=== PATIENT | male | born 1955 | race Caucasian/White ===

== ENCOUNTER 2024-06-17 13:30 | Outpatient (CLI) | payer OTHER, SELFPAY | END 2024-06-17 13:31 | disposition home or self-care (01) | PROVIDERS: Visit Provider Family Medicine | DX: I10 Essential (primary) hypertension (principal); Z13.29 Encounter for screening for other suspected endocrine disorder | CPT/HCPCS: 80048; 84443 ==

== ENCOUNTER 2024-07-30 09:10 | Emergency (ER) | payer BC, SELFPAY ==
[2024-07-30 09:24] VITALS: BP 169/88; PULSE 66; RESP 18; TEMP 36.6; O2SAT 98; BMI 25.1
--- NOTE | 2024-07-30 09:53 | ED.GENADULT ---
HPI - General Adult General Date Seen: 07/30/24 Chief complaint: Extremity Pain/Injury, Lower Stated complaint: L leg infection Time Seen by Provider: 07/30/24 09:51 History of Present Illness HPI narrative: 69-year-old male with a past medical history of hypertension, tobacco use, history of bilateral hip replacements, presenting to the ER today for left leg cellulitis which is recurring. Per medical record he is tablets primary care with the [facility] in May, Dr. Smith. Started on lisinopril. He was seen in urgent care on 07/18 with a 4 day history of left lower extremity redness and swelling. He had been scratch by a Juniper tree in his yd about a week prior to onset of his symptoms. Labs and urgent care showed a white count of 7.7, hemoglobin 12.3. Glucose 97. D-dimer normal at 438. Creatinine 1.6. Treated for cellulitis with cephalexin 500 q.i.d. for 7 days. Patient reports that he finished that course of antibiotics and felt like the infection is completely healed. 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 Was seen again yesterday on 07/29 in urgent care for recurrent cellulitis. Had started having symptoms again about 5 days prior to the visit (around the end of June) . White blood cell count was 9.3. He was febrile. He was told to come to the ER last night. However since he was tired and needed to go home and shower, he refused to come last night. He said he would come in this morning because he was tired. Overnight he has had ongoing swelling and redness of the left distal half of the whitfield, lateral to the tibia. It is not really spreading. He has had some fevers and chills. No weakness. No spreading redness. Nose ascending lymphangitis. He has no history of diabetes or known immunosuppression. No history of chemotherapy or cancer. No autoimmune diseases. He has no history of peripheral artery disease. The patient recalls that he for suffered an injury to that whitfield while doing yd work a few weeks ago. They apparently got poked in the leg by a stick from his Juniper [place]. He is pretty confident there is no buried foreign body or sliver there. He also has a few other scratches on his whitfield which are apparently related to mowing lawn and pre-existing his infection. He recalls having some purulent drainage from the Tisha upper portion puncture site week or 2 ago when the infections 1st began. The drainage stopped after the puncture sites scabbed over Related Data Home Medications ?Medication ?Instructions ?Recorded ?Confirmed multivitamin 1 tab PO QAM 06/17/24 07/29/24 Previous Rx's ?Medication ?Instructions ?Recorded lisinopril 20 mg tablet See Rx Instructions PO QDAY #30 06/17/24 tabs cephalexin 500 mg capsule 500 mg PO QID #40 caps 07/30/24 doxycycline hyclate 100 mg capsule 100 mg PO BID #20 caps 07/30/24 Allergies Allergy/AdvReac Type Severity Reaction Status Date / Time No Known Drug Allergies Allergy Verified 07/29/24 17:08 [facility] Surgical History S/P right inguinal hernia repair ?Z98.890 - Other specified postprocedural states (ICD-10) ?Z87.19 - Personal history of other diseases of the digestive system (ICD-10) H/O thumb surgery ?Z98.890 - Other specified postprocedural states (ICD-10) S/P bilateral hip replacements ?Z96.643 - Presence of artificial hip joint, bilateral (ICD-10) S/P appendectomy ?Z90.49 - Acquired absence of other specified parts of digestive tract (ICD-10) Social History Smoking Status: Current every day smoker What tobacco products do you use: cigarettes Smoking packs per day: 0.5 Smoking cigarettes per day: 10.0 Do you use any of these nicotine containing products: None Second hand tobacco smoke exposure: No How often do you have a drink containing alcohol: monthly or less How many standard drinks containing alcohol do you have on a typical day: 1 or 2 How often do you have six or more drinks on one occasion: Never AUDIT-C Alcohol total score: 1 Non-prescribed substance use: denies use Little interest or pleasure in doing things: nearly every day Feeling down, depressed, or hopeless: not at all service: No Exam Narrative: Exam Narrative: Constitutional: Appears well-developed and well-nourished. Alert. Conversant. Non toxic. HENT: Head: Atraumatic. Nose: Nose normal. Mouth/Throat: Oral mucosa is clear and moist. no trismus. Pharynx normal. Tonsils symmetric. No tonsillar enlargement, erythema, or exudate. Eyes: Conjunctivae normal. EOM normal. Pupils equal, round, and reactive to light. No scleral icterus. Neck: Normal range of motion. Neck supple. No tracheal deviation present. Cardiovascular: Normal rate, regular rhythm. No gallop. No friction rub. No murmur heard. Symmetric PT and DP artery pulses . Normal brisk distal capillary refill Pulmonary/Chest: Effort normal. No stridor. No respiratory distress. No wheezes. No rales. No rhonchi . Musculoskeletal: RUE: Normal range of motion. No tenderness. No deformity LUE: Normal range of motion. No tenderness. No deformity RLE: Normal range of motion. No edema. No tenderness. No deformity LLE: Normal range of motion in his hip, knee, ankle, toes. No deformity,. He does have redness and edema and swelling affecting the distal 1/2 of the anterolateral whitfield in particular with erythema lateral to the tibia. There are 4 or 5 small sub cm chronic appearing scabs on the left whitfield. He indicates that 1 of the scabs which is at the proximal and the area of erythema was triggered by the March upper saldivar branch which poked into his leg a few weeks ago. There is some swelling around that puncture site. No definite fluctuance on my clinical exam. No crepitus or gas in the soft tissue. Bedside ultrasound does indicate a fluid pocket in that area. No foreign body by ultrasound. Lymph: No ascending lymphangitis. . Neurological: Alert and oriented to person, place, and time. Normal strength. CN II-VII intact. No sensory deficit. GCS eye subscore is 4. GCS verbal subscore is 5. GCS motor subscore is 6. Normal coordination Skin: Skin is warm and dry. No rash noted. No pallor. Normal capillary refill. Psychiatric: Normal mood. Normal affect. Const: Vital Signs, click to edit/add: Vital Signs - 24 hr 07/30/24 09:24 07/30/24 11:59 Temperature 97.8 F 98.7 F Pulse Rate [Pulse Oximeter] 66 61 Respiratory Rate 18 18 Blood Pressure [Ri ght Upper Arm] 169/88 H 160/101 H Pulse Oximetry 98 98 Oxygen Delivery Me thod Room Air Room Air Course Vital Signs Vital signs: Initial Vital Signs Temperature 97.8 F 07/30/24 09:24 Temperature Source Temporal Artery Scan 07/30/24 09:24 Pulse Rate 66 07/30/24 09:24 Respiratory Rate 18 07/30/24 09:24 Blood Pressure 169/88 H 07/30/24 09:24 Blood Pressure Mean 115 H 07/30/24 09:24 Pulse Oximetry 98 07/30/24 09:24 Oxygen Delivery Method Room Air 07/30/24 09:24 Vital Signs Temperature 97.8 F 07/30/24 09:24 Pulse Rate 66 07/30/24 09:24 Respiratory Rate 18 07/30/24 09:24 Blood Pressure 169/88 H 07/30/24 09:24 Pulse Oximetry 98 07/30/24 09:24 Oxygen Delivery Method Room Air 07/30/24 09:24 Temperature 98.7 F 07/30/24 11:59 Pulse Rate 61 07/30/24 11:59 Respiratory Rate 18 07/30/24 11:59 Blood Pressure 160/101 H 07/30/24 11:59 Pulse Oximetry 98 07/30/24 11:59 Oxygen Delivery Method Room Air 07/30/24 11:59 Medications Administered Medications: Discontinued Medications Generic Name Dose Route Start Last Admin Trade Name Freq PRN Reason Stop Dose Admin Ceftriaxone Sodium 1 gm/ 100 mls @ 200 mls/hr 07/30/24 10:24 07/30/24 11:25 Sodium Chloride IVPB 07/30/24 10:25 Infused ONCE ONE Infusion Medical Decision Making [facility] Narrative Medical decision making narrative: 69-year-old smoker with no history of diabetes or peripheral artery disease or immunosuppression presents to the ER today with a recurrent episode of cellulitis affecting his left lower extremity on the distal anterolateral whitfield. Sounds like he did have a puncture wound by a Tisha of her [place] a few weeks ago. He does not believe there was any foreign body at that time. He has already had 1 case cellulitis which improved after a 7 day course cephalexin but now worsened again. Her clinical presentation is consistent with recurrent cellulitis. On my ultrasound there is also a fluid pocket suggesting for abscess. I do not see any sign of any sonographically apparent foreign body. No evidence for gas in the soft tissue. After discussion, patient agreed with plans to go ahead for IV antibiotics as well as drainage of the abscess. Labs were obtained and do show slightly rising white count up to 11.3. Up slightly from 9 yesterday. He is otherwise nontoxic, hemodynamically stable, and afebrile today. Incision and drainage was performed we got out a small amount of purulent debris and also some blood clots. At this point I do not think he needs to go to the ER for more extensive debridement. There do not appear at this time to be any complication of cellulitis including necrotizing fascitis, lymphangitis, lymphadenitis, osteomyelitis, sepsis, or shock. The patient is not immunosuppressed or diabetic. Supportive outpatient management is indicated with antibiotics. Put him on cephalexin to cover MSSA and doxycycline to cover MRSA. I do note that labs show mild hyperkalemia. I suspect this is probably due to hemolysis from lab draw, but he does have a mildly elevated creatinine. Therefore would hold off on Bactrim. The patient is instructed to follow-up with primary care physician to ensure no progression and rapid resolution and given precautions to return if high fever, spread greater than 2cm outside of the current area, worsening pain, vomiting or any other worsening. Questions answered and return precautions reviewed. Lab Data Labs: Lab Results 07/30/24 Range/Units 10:42 WBC 11.60 H (4.50-11.00) K/uL RBC 4.23 L (4.30-5.90) m/uL Hgb 12.6 L (13.5-17.5) gm/dL Hct 39.7 (37.0-53.0) % MCV 94 (80-100) fL MCH 30 (26-34) pg MCHC 32 (32-36) gm/dL RDW Coeff of Adele 13.5 (11.5-15.5) % Plt Count 339 (140-440) K/uL Neut % (Auto) 76.5 H (42.0-72.0) % Lymph % (Auto) 14.7 L (20-44) % Grimes % (Auto) 5.7 (0.0-11.0) % Eos % (Auto) 2.4 (0.0-7.0) % Baso % (Auto) 0.5 (0.0-3.0) % Neut # (Auto) 8.90 H (1.7-7.0) K/uL Lymph # (Auto) 1.70 (0.90-2.90) K/uL Grimes # (Auto) 0.70 (0.00-0.90) K/UL Eos # (Auto) 0.30 (0.00-0.50) K/uL Baso # (Auto) 0.10 (0.00-0.30) K/uL Abs Immat Gran (auto) 0.00 (0.00-0.30) K/uL Imm/Tot Granulo (auto) 0.2 % Sodium 135 (135-149) mmol/L Potassium 5.7 H (3.6-5.1) mmol/L Chloride 103 (96-114) mmol/L Carbon Dioxide 26 (20-32) mmol/L Anion Gap 6 L (7-15) mEq/L BUN 31 H (7-30) mg/dL Creatinine 1.6 H (0.5-1.5) mg/dL Estimated Creat Clear 44.80 Estimated GFR 47 ml/min Glucose 97 (60-115) mg/dL Lactate 1.5 (0.5-1.9) mmol/L Calcium 9.3 (8.4-10.6) mg/dL Discharge Plan Discharge Clinical Impression: Cellulitis and abscess of leg Patient Disposition: Home, Self-Care Condition: Stable Instructions: Cellulitis (ED), Abscess (ED), Incision and Drainage (ED) Additional Instructions: As we discussed, please return to the ER right away if you have worsening swelling, spreading redness, high fevers or chills, weakness, or any worsening of your condition. It usually will take 2 or 3 days of being on antibiotics for the infection to start to look better. However if it gets worse come back to the ER right away. If it is not dramatically improved within 3-5 days, please see your doctor or come back to the ER for recheck. Prescriptions: New doxycycline hyclate 100 mg capsule 100 mg PO BID Qty: 20 0RF cephalexin 500 mg capsule 500 mg PO QID Qty: 40 0RF No Action multivitamin Tablet 1 tab PO QAM lisinopril 20 mg tablet See Rx Instructions PO QDAY Qty: 30 2RF Rx Instructions: 1/2 tab daily for 4D, then 1 daily orally every day; Follow Up/Referrals: Fortunato Martins MD [Primary Care Provider] - Stand Alone Forms: [facility] Info Instructions Procedures I/D Type: abscess Site: lower extremity (Left anterolateral whitfield) Pre procedure diagnosis: Cellulitis and abscess Post procedure diagnosis: Cellulitis and abscess with hematoma Verification/time out: correct patient and correct site Anesthesia I&D: lidocaine 1% and with Epi Amount of anesthesia used (mls): 4 Side (if applicable): left Technique: incised with #11 blade (1.5 cm linear incision. We entered into the fluid pocket. We got out a moderate amount of bloody liquid he purulent fluid also with some clots of blood mixed in. Using a blunt hemostat we probed for loculations. None were found. We expressed all fluid until the pocket was physically decompress) Packing used?: none Estimated blood loss (if any): none Ultrasound Other exam #1: Anatomical areas examined: Left lower extremity/left whitfield Indications: Recurrent cellulitis and swelling, evaluate for foreign body or abscess Description/findings: High-frequency linear ray probe used. No visualized foreign body. There is a hypoechoic fluid collection measuring 1.8 x 1 cm suspicious for abscess. Impression: Positive for Abscess. Negative for foreign body
[2024-07-30 10:49] LABS: Lactate* 1.5 mmol/L (0.5-1.9)
[2024-07-30 10:51] LABS: Basophils Percent Auto 0.5 % (0.0-3.0); Eosinophils Percent Auto 2.4 % (0.0-7.0); Hematocrit 39.7 % (37.0-53.0); Hemoglobin* 12.6 gm/dL (13.5-17.5); Immature Granulocytes Pct Auto 0.2 %; Lymphocytes Percent Auto 14.7 % (20-44); Mean Corpuscular HGB Conc 32 gm/dL (32-36); Mean Corpuscular Hemoglobin 30 pg (26-34); Mean Corpuscular Volume 94 fL (80-100); Monocytes Percent Auto 5.7 % (0.0-11.0); Neutrophils Percent Auto 76.5 % (42.0-72.0); Platelet Count* 339 K/uL (140-440); RDW Coefficient of Variation % 13.5 % (11.5-15.5); Red Blood Count 4.23 m/uL (4.30-5.90)
[2024-07-30] MEDS: cefTRIAXone 1 GM in 0.9 % SODIUM CHLORIDE Mini-bag 100 ML IVPB (10:53)
[2024-07-30 10:55] LABS: Slide Review Reflex No
[2024-07-30 11:03] LABS: Chloride* 103 mmol/L (96-114)
[2024-07-30 11:04] LABS: Potassium* 5.7 mmol/L (3.6-5.1); Sodium* 135 mmol/L (135-149)
[2024-07-30 11:06] LABS: Creatinine* 1.6 mg/dL (0.5-1.5); Estimated Glomerular Filt Rate 47 ml/min
[2024-07-30 11:07] LABS: Anion Gap 6 mEq/L (7-15); Blood Urea Nitrogen* 31 mg/dL (7-30); Calcium* 9.3 mg/dL (8.4-10.6); Carbon Dioxide* 26 mmol/L (20-32); Glucose* 97 mg/dL (60-115)
[2024-07-30 11:59] VITALS: BP 160/101; PULSE 61; RESP 18; TEMP 37.1; O2SAT 98
== END 2024-07-30 12:40 | disposition home or self-care (01) ==
PROVIDERS: Emergency Provider Emergency Medicine; PCP Family Medicine
DX: L02.416 Cutaneous abscess of left lower limb (principal)
CPT/HCPCS: 10060; 36415; 76604; 76705; 80048; 83605; 85025; 93308; 96365; 99283; J0696